=== PATIENT | male | born 1970 | race Caucasian/White ===

== ENCOUNTER → 2023-01-15 08:04 | Outpatient (CLI) | payer OTHER, SELFPAY ==
--- NOTE | ~2023-01-15 | US_ITS ---
EXAMINATION: US soft tissue abdomen DATE: 01/15/2023 08:24 INDICATION: Left upper quadrant abdominal mass. TECHNIQUE: Multiple grayscale and Doppler ultrasound images of the abdomen were obtained. COMPARISON: None FINDINGS: In the left upper quadrant, there is a 7.6 x 4.1 x 10.1 cm hypoechoic mass. There is mild s plenomegaly. IMPRESSION: 1. 7.6 x 4.1 x 10.1 cm hypoechoic mass in left upper quadrant of the abdomen suspicious for hematoma or neoplasm. CT abdomen and pelvis with contrast is recommended. 2. Mild splenomegaly. Reviewed, dictated and finalized at location A. IMPRESSION: 1. 7.6 x 4.1 x 10.1 cm hypoechoic mass in left upper quadrant of the abdomen parikh spicious for hematoma or neoplasm. CT abdomen and pelvis with contrast is recom mended. 2. Mild splenomegaly.
== END ==
PROVIDERS: PCP Family Medicine; Visit Provider Nurse Practitioner Family
DX: R19.02 Left upper quadrant abdominal swelling, mass and lump (principal); E11.40 Type 2 diabetes mellitus with diabetic neuropathy, unspecified; I10 Essential (primary) hypertension; E78.5 Hyperlipidemia, unspecified; R35.0 Frequency of micturition; R16.1 Splenomegaly, not elsewhere classified
CPT/HCPCS: 76705

== ENCOUNTER → 2023-01-21 09:48 | Outpatient (CLI) | payer OTHER, SELFPAY ==
--- NOTE | ~2023-01-21 | CT_ITS ---
CT of the Abdomen and Pelvis: Indication: Left upper quadrant mass Technique: 2.5 mm axial scans were obtained through the abdomen and pelvis following intravenous adm inistration of 100 cc of Omnipaque 350. Dose reduction technique was used on this scan by utilizing a utomated exposure control and iterative reconstruction technique. The dose-length product (DLP) was 1 142.03 mGy-cm. Findings: Scans through the lung bases are unremarkable. The liver, spleen, pancreas, gallbladder, adrenals and kidneys are within normal limits. No evidence of aortic aneurysm. No lymphadenopathy. No bowel obstruction or bowel wall thickening. There is no evidence to suggest acute appendicitis. In the subcutaneous soft tissues in the left upper quadrant region anteriorly, there is an 11.2 x 4.1 x 7.4 cm peripherally enhancing fluid collection. Small amount of fat apparently present within the co llection as well. Images through the pelvis were performed. Urinary bladder unremarkable. Prostate gland and seminal ve sicles are unremarkable. No ascites. Bilateral L5 pars interarticularis defects are present, with 8 mm anterolisthesis of L5 over S1. Impression: 11.2 x 4.1 x 7.4 cm fluid collection with small ventral fat in the subcutaneous soft tissues in the l eft upper quadrant region. This could reflect seroma, abscess, or possibly sequela of degloving type injury (Serrato-Raul lesion). Bilateral L5 pars interarticularis defects, with 8 mm anterolisthesis of L5 over S1. Reviewed, dictated and finalized at [facility]. Impression: 11.2 x 4.1 x 7.4 cm fluid collection with small ventral fat in the subcutaneous soft tissues in the left upper quadrant region. This could reflect seroma, abs cess, or possibly sequela of degloving type injury (Serrato-Raul lesion). Bilateral L5 pars interarticularis defects, with 8 mm anterolisthesis of L5 ove r S1.
[2023-01-21 10:07] LABS: Estimated Glomerular Filt Rate > 60
== END ==
PROVIDERS: PCP Family Medicine; Visit Provider Nurse Practitioner Family
DX: R19.02 Left upper quadrant abdominal swelling, mass and lump (principal); M43.06 Spondylolysis, lumbar region
CPT/HCPCS: 74177; Q9967

== ENCOUNTER 2023-03-23 15:02 | Outpatient (CLI) | payer OTHER, SELFPAY ==
--- NOTE | 2023-03-23 15:07 | ECG_ITS ---
Measurements Intervals [place] Rate: 66 P: 47 [place]: 180 QRS: -43 QRSD: 134 T: 3 QT: 405 QTc: 427 Interpretive Statements SINUS RHYTHM LEFT AXIS DEVIATION RIGHT BUNDLE BRANCH BLOCK ABNORMAL ECG NO PREVIOUS ECG AVAILABLE FOR COMPARISON Electronically Signed On 03-23-2023 16:18:35 CDT by Hugn Hernandez D.O.
[2023-03-23 15:37] LABS: Hematocrit 47.6 % (42.0-52.0); Hemoglobin 15.7 g/dL (14.0-18.0)
[2023-03-23 15:50] LABS: Anion Gap 9 mmol/L (8-16); Blood Urea Nitrogen 15 mg/dL (9-20); Calcium 8.8 mg/dL (8.4-10.2); Carbon Dioxide 28 mmol/L (22-30); Chloride 101 mmol/L (98-107); Estimated Glomerular Filt Rate > 60; Glucose 96 mg/dL (65-110); Potassium 3.7 mmol/L (3.4-5.0); Sodium 138 mmol/L (137-145)
== END 2023-03-23 15:03 | disposition home or self-care (01) ==
PROVIDERS: Anesthesiology; PCP Family Medicine; Visit Provider Surgery
DX: K43.9 Ventral hernia without obstruction or gangrene (principal); E11.9 Type 2 diabetes mellitus without complications
CPT/HCPCS: 36415; 80048; 85014; 85018; 86850; 86900; 86901; 93005

== ENCOUNTER 2023-03-25 00:08 | Day surgery (SDC) | payer OTHER, SELFPAY ==
[2023-03-21 10:52] VITALS: BMI 37.6
--- NOTE | 2023-03-21 11:02 | PC.NURSE ---
Report to the Outpatient Waiting Room, entrance under the green pavilion located off [facility], at time 8:30 on date 03/25/23. Planned Procedure Time: 10:30. Time changes happen often and if your time is changed the preop area will call you the afternoon before. - You and your visitor will be asked to self-screen and do not enter if you have any COVID symptoms. - A mask is optional within the hospital at this time. Patients may have clear liquids (water, carbonated beverages, clear teas, apple juice) until 3 hours prior to surgery (7:30) with a maximum of 20 ounces. - No food from midnight until time of surgery Take the following medications with a SIP of water the morning of surgery: PREGABALIN DO NOT STOP ANY OF YOUR OTHER PRESCRIPTION MEDICATIONS PRIOR TO SURGERY ?EXCEPT THE FOLLOWING Medications to discontinue per physician: VITAMINS/SUPPLEMENTS Date to take last dose: 03/21/23 Please no make-up, nail sri lankan, hairspray, perfume, deodorant, or body powder the day of surgery. No jewelry (including any body piercings) or valuables the day of surgery, leave them at home. Please take a shower or bath the night before, or the morning of, surgery with an antibacterial soap (HIBICLENS). Wear comfortable, loose fitting clothing. - Jewelry must be removed prior to entering the operating room. Rings and piercings that are not removed may be cut off. - The hospital will not accept responsibility for valuables. - Please leave all valuables, including medications, at home the day of surgery. If you are going home after surgery, a licensed marine engine driver must drive you home. - NO public transportation without another adult if you receive anesthesia. - We recommend that an adult stay with you for 24 hours following discharge. - We also recommend that you do not drive, make important decision, drink alcoholic beverages, or take any drugs that were not prescribed by your health care provider for at least 24 hours after your discharge time. Follow any additional instructions given to you from your surgeon. If you or anyone in your household have experienced Covid symptoms in the past week, please notify your surgeon or the nurse liaison at the phone number below for possible testing. Telephone instructions given to PT - SERA AGUILERA and asked if any additional questions and then verbalized understanding. Patient advised to call surgeon office or pre surgery nurse liaison [phone] if any additional questions.
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
[2023-03-25] VITALS (14 sets, daily range): BP systolic 109–136; BP diastolic 64–87; PULSE 66–90; RESP 10–20; TEMP 35.7–36.9; O2SAT 94–98
--- NOTE | 2023-03-25 07:14 | WPDHPUPDATE1 ---
History and Physical Update Update Date/Time: 03/25/23 07:14 History and Physical has been reviewed, including an updated exam of the patient. There are NO changes in the patient's condition. Risks, benefits, and alternatives have been discussed and questions answered. Patient agrees to proceed with procedure.
[2023-03-25] MEDS: ACETAMINOPHEN 500 MG TABLET 1000 MG PO (08:41)
[2023-03-25] MEDS: LACTATED RINGERS 1,000 ML 30 ML IV CONT ×2 (09:10→13:16)
[2023-03-25] MEDS: KETOROLAC 15 MG/ML VIAL (*BKC) IV PUSH (09:12)
[2023-03-25 09:18] LABS: Glucose Point of Care 87 mg/dl (65-105)
--- NOTE | 2023-03-25 09:46 | WPDANESEPPF ---
Anes - Initial Pre Proc Eval Procedure: Operation Date: 03/25/23 10:30 Proposed Procedures p Robotic Assisted Laparoscopic Ventral Hernia Repair with Mesh, - Timur Heath MD s Excision Left Upper Quadrant Chronic Seroma - Timur Heath MD Date/Time: 03/25/23 09:46 Surgeon: Timur Heath MD Pre Op Diagnosis: ventral hernia, LUQ chronic seroma Patient Data Age: 53 Gender: M Height: 1.75 m Weight: 115.7 kg Allergies Allergy/AdvReac Type Severity Reaction Status Date / Time Penicillins Allergy Unknown as a child Verified 03/25/23 08:24 Home Medications Medication Instructions Recorded Confirmed Type atorvastatin 40 mg tablet 40 mg PO DAILY 01/21/23 03/25/23 History benazepril 10 mg tablet 10 mg PO BID 01/21/23 03/25/23 History hydrochlorothiazide 12.5 mg capsule 12.5 mg PO DAILY 01/21/23 03/25/23 History metformin 500 mg tablet,extended 500 mg PO TID 01/21/23 03/25/23 History release 24 hr omega 1-ibk-lgc-fish oil 1,000 mg 1 cap PO DAILY 01/21/23 03/25/23 History (120 mg-180 mg) capsule (Fish Oil) pregabalin 50 mg capsule 50 mg PO BID 01/21/23 03/25/23 History semaglutide 2 mg/dose (8 mg/3 mL) 2 mg subcut WEEKLY 01/21/23 03/25/23 History subcutaneous pen injector (Ozempic) tadalafil 5 mg tablet 5 mg PO DAILY 01/21/23 03/25/23 History tamsulosin 0.4 mg capsule 0.4 mg PO DAILY 01/21/23 03/25/23 History cinnamon bark 500 mg capsule 1,000 mg PO BID 03/25/23 03/25/23 History (Cinnamon) glimepiride 4 mg tablet 4 mg PO DAILY 03/25/23 03/25/23 History Laboratory Tests 03/25/23 09:14 POC Capillary Glucose 87 mg/dl (65-105) Patient hx anesthesia problems: none Family hx anesthesia problems: none Results Review: All pre-operative results and documents have been reviewed as part of the pre-operative evaluation. [facility] Past Medical History Medical History Diabetes mellitus High cholesterol Hypertension Surgical History Surgical History H/O thumb surgery History of ankle surgery Family History Family History Other Diabetes mellitus Family history of cardiovascular disease Hypertension Social History Social History Smoking status: Never smoker Alcohol intake: current Drinks per week: 1 Substance use: current Substance use type: marijuana Living arrangements: with family Spiritual care concerns: No Anes - Eval Final PreProcedure Day of Procedure 03/25/23 09:46 Patient weight: obese Heart: regular rate and rhythm Lungs: clear to auscultation Airway: Mallampati scale class II Neurological: alert and oriented Last oral intake: >/= 8 hours ASA classification: III Emergent: no Anesthetic plan: proceed Anesthesia type and monitoring: general ETT and standard monitoring Results Review: All pre-operative results and documents have been reviewed as part of the pre-operative evaluation. Informed Consent: The patient's anesthetic plan and its attendant risks and benefits were discussed with the patient/family/POA. Questions were solicited and answers provided to the satisfaction of the patient/family/POA.
--- NOTE | 2023-03-25 09:57 | SUR.PREOP ---
0974-DR. CASTILLO AWARE PT TOOK METFORMIN @ 0330 AND ACCUCHECK RESULT OF 87 @ 5199.
[2023-03-25] MEDS: ceFAZolin 2 GM/D5W 50 ML 2 GM/50 ML BAG IVPB (09:58)
[2023-03-25] MEDS: BUPIVACAINE/EPINEPHRINE 0.25% 10 ML VIAL 30 ML INFILTRATE (10:37)
[2023-03-25 13:40] LABS: Glucose Point of Care 160 mg/dl (65-105)
[2023-03-25] MEDS: fentaNYL CITRATE INJ (*CRX) 100 MCG/2 ML VIAL 25 MCG IV PUSH ×5 (13:45→14:41)
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
[2023-03-25 15:40] LABS: Glucose Point of Care 188 mg/dl (65-105)
[2023-03-25] MEDS: lisinopriL 10 MG TABLET PO (17:50)
[2023-03-25] MEDS: PREGABALIN (*CRX) 50 MG CAPSULE PO (17:50)
[2023-03-25] MEDS: metFORMIN HCL XR 500 MG TAB.SR.24H 1000 MG PO (17:50)
[2023-03-25] MEDS: LACTATED RINGERS 1,000 ML 80 ML IV CONT (17:51)
--- NOTE | 2023-03-25 18:28 | ADMGEN ---
This patient, Lane Martinez, was admitted to [facility] Surg Room 330-02. Patient/family oriented to hospital policies and general routines including ID bracelet, bed and alarms, visiting hours, pain management, procedures, bathroom and other care routines, personal items, smoking policy, room service/diet, and visiting hours. Information on how to activate the Rapid Response Team has been discussed. Patient/Family are encouraged to report perceived risks to care and to ask questions if they do not understand what they are told or what they should do.
[2023-03-25 22:33] LABS: Glucose Point of Care 162 mg/dl (65-105)
[2023-03-25] MEDS: ACETAMINOPHEN 500 MG TABLET PO (23:49)
[2023-03-26 00:21] VITALS: BP 126/77; PULSE 91; RESP 18; TEMP 37; O2SAT 96
[2023-03-26 04:39] VITALS: BP 129/67; PULSE 81; RESP 18; TEMP 36.6; O2SAT 99
[2023-03-26 06:16] LABS: Hematocrit 46.2 % (42.0-52.0); Hemoglobin 15.3 g/dL (14.0-18.0); Mean Corpuscular HGB Conc 33.1 g/dl (32-36); Mean Corpuscular Hemoglobin 28.3 pg (26-34); Mean Corpuscular Volume 85.4 fl (80-100); Mean Platelet Volume 9.4 fl (7.4-10.4); Platelet Count Result 195 k/mm3 (150-375); Red Blood Count 5.41 M/mm3 (4.6-6.20); Red Cell Distribution Width 13.4 % (11.5-14.5); White Blood Count 9.8 K/mm3 (4.5-10.0)
[2023-03-26 06:33] LABS: Anion Gap 9 mmol/L (8-16); Blood Urea Nitrogen 18 mg/dL (9-20); Calcium 8.4 mg/dL (8.4-10.2); Carbon Dioxide 27 mmol/L (22-30); Chloride 96 mmol/L (98-107); Estimated CRCL calculation 107 ml/min; Estimated Glomerular Filt Rate > 60; Glucose 106 mg/dL (65-110); Sodium 132 mmol/L (137-145)
[2023-03-26 08:37] LABS: Glucose Point of Care 87 mg/dl (65-105)
[2023-03-26 08:39] VITALS: BP 132/75; PULSE 76; RESP 18; TEMP 36.9; O2SAT 100
--- NOTE | 2023-03-26 10:09 | PM.DS ---
DS: Admitting Diagnosis Discharge Date 03/26/2023 Admitting Diagnosis Epigastric hernia, chronic seroma DS: Discharge Diagnosis Discharge Diagnosis (1) Ventral hernia: Qualifiers: Obstruction and gangrene presence: without obstruction or gangrene Qualified Code(s): K43.9 - Ventral hernia without obstruction or gangrene Code(s): K43.9 - Ventral hernia without obstruction or gangrene Status: Chronic Assessment and Plan: status post robotic assisted repair with mesh, continue postoperative care including light activity restrictions, follow-up with Dr. Heath in 1 week (2) Seroma: Status: Chronic Assessment and Plan: status post open excision and drainage, continue routine postoperative care, continue drain care, follow-up with Dr. Heath in 1 week (3) Diabetes mellitus: Qualifiers: Diabetes mellitus complication status: without complication Diabetes mellitus custodial insulin use: without terminal operations supervisor use Diabetes mellitus type: type 2 Qualified Code(s): E11.9 - Type 2 diabetes mellitus without complications Code(s): E11.9 - Type 2 diabetes mellitus without complications Status: Chronic Assessment and Plan: stable, continue home medications (4) Hypertension: Qualifiers: Hypertension type: primary hypertension Qualified Code(s): I10 - Essential (primary) hypertension Code(s): I10 - Essential (primary) hypertension Status: Chronic Assessment and Plan: stable, continue home meds DS: Summary Hospital Course Reason for hospitalization: epigastric ventral hernia, left upper quadrant subcutaneous chronic seroma Hospital Course: The patient is a 53-year-old male that presented to the hospital for repair of epigastric ventral hernia and open excisional drainage of chronic seroma in the left upper quadrant. The patient was taken to the operating room on 03/[address] Heath for robotic assisted repair of epigastric ventral hernia and open excisional drainage of chronic seroma. Please see full operative report for details of the procedure. Postoperatively, the patient did well was transferred to the surgical floor. On postoperative day 1. , the patient was doing well and complained of mild incisional soreness. The patient reports his pain is well controlled with p.o. analgesia. The patient has a JOSSELINE drain that is draining a moderate amount of serosanguineous fluid. The patient will be taught drain care and will be sent home with the drain. He will follow up with Dr. Heath in 1 week. Status at Discharge Functional status at discharge: independent ambulation Overall status at discharge: patient is progressing back to baseline Time Spent with Patient Time attestation: Total time spent providing and/or coordinating discharge services: Time spent: Less than 30 minutes Exam Const: General: cooperative, comfortable and no acute distress Resp: Auscultation: clear to auscultation bilaterally Cardio: Rate: regular rate Rhythm: regular rhythm GI: Inspection: normal to inspection, distended and incision GI Palp: Yes abdominal tenderness, Yes Soft to palpation, Yes Tenderness to palpation present (GI), No Guarding due to palpation present (GI) and No Rigid due to palpation Other: JOSSELINE c s/s output DS: Data Data Completed and Pending Pending studies at discharge: Pending at discharge 03/25/23 12:54 Surgical [PTH] Routine Labs on day of discharge: Labs from last 24 hours 03/26/23 03/26/23 03/25/23 07:47 05:50 20:42 WBC 9.8 RBC 5.41 Hgb 15.3 Hct 46.2 MCV 85.4 MCH 28.3 MCHC 33.1 RDW 13.4 Plt Count 195 MPV 9.4 Sodium 132 L Potassium 4.0 Chloride 96 L Carbon Dioxide 27 Anion Gap 9 BUN 18 Creatinine 0.90 Estim Creat Clear Calc 107 Estimated GFR > 60 Glucose 106 POC Capillary Glucose 87 162 H Calcium 8.4 03/25/23 03/25/23 15:25 13:23
[2023-03-26] MEDS: metFORMIN HCL XR 500 MG TAB.SR.24H 1000 MG PO (10:44)
[2023-03-26] MEDS: lisinopriL 10 MG TABLET PO (10:44)
[2023-03-26] MEDS: GLIMEPIRIDE 2 MG TABLET 4 MG PO (10:46)
[2023-03-26] MEDS: ATORVASTATIN 40 MG TABLET PO (10:46)
[2023-03-26] MEDS: TAMSULOSIN HCL 0.4 MG CAPSULE PO (10:47)
[2023-03-26] MEDS: hydroCHLOROthiazide 12.5 MG CAPSULE PO (10:47)
[2023-03-26] MEDS: ENOXAPARIN 40 MG/0.4 ML SYRINGE SUB-Q (10:48)
[2023-03-26] MEDS: PREGABALIN (*CRX) 50 MG CAPSULE PO (10:49)
[2023-03-26 12:00] LABS: Glucose Point of Care 163 mg/dl (65-105)
--- NOTE | 2023-03-26 15:17 | PC.NURSE ---
Pt is A&O4 male who has participated and contributed in plan of care. Pt discharged home with . Pt had problems with medication at the pharmacy. Issue resolved once provider contacted. Pt denied any need for pain medication. Pt ambulating well in the halls. Pt had 30 mL out in JOSSELINE drain. Drain site was clean dry and intact. Pt and were educated on how to empty drain and compress grenade to create closed suction. Pt was monitored for any changes in status while here.
== END 2023-03-26 13:10 | disposition home or self-care (01) ==
LOC: ANHSURGERY 08:11 → ANH3MEDSUR 14:58
PROVIDERS: PCP Family Medicine; Visit Provider Surgery
PROC: (CPT 49595; principal; 2023-03-25 10:30)
PROC: (CPT 49595; 2023-03-25 10:30)
DX: K43.2 Incisional hernia without obstruction or gangrene (principal); M79.81 Nontraumatic hematoma of soft tissue; N40.1 Benign prostatic hyperplasia with lower urinary tract symptoms; N13.8 Other obstructive and reflux uropathy; G89.18 Other acute postprocedural pain; I10 Essential (primary) hypertension; E11.9 Type 2 diabetes mellitus without complications; E78.00 Pure hypercholesterolemia, unspecified; F12.90 Cannabis use, unspecified, uncomplicated; E66.9 Obesity, unspecified; Z68.39 Body mass index [BMI] 39.0-39.9, adult; Z79.84 Long term (current) use of oral hypoglycemic drugs
CPT/HCPCS: 49595; 22903; S2900; 36415; 80048; 82948; 85014; 85018; 85027; 86850; 86900; 86901; 87070; 87075; 87205; 88305; 93005; A9270; C1781; J0690; J1100; J1650; J1885; J2250; J2270; J2405; J2704; J3010; J7120

== ENCOUNTER → 2023-06-29 09:39 | Outpatient (CLI) | payer OTHER, SELFPAY ==
--- NOTE | ~2023-06-29 | US_ITS ---
EXAMINATION: US carotid duplex BI DATE: 06/29/2023 10:14 INDICATION: Hypertension TECHNIQUE: Grayscale, color Doppler, and pulsed Doppler images of the cervical carotid arteries were obtained. The degree of vessel stenosis is placed in one of the following categories: normal, <50%, 5 0-69%, >=70% but less than near-occlusion, near-occlusion, or total occlusion. Note that percent sten osis relative to normal distal artery lumen diameter is indirectly measured from velocity measurement s as described by Nik, et al. Radiology 2003; 229:340-346. Notes: Normal: Peak systolic velocity <125 centimeters/sec and no plaque <50%. Peak systolic velocity <125 ( EDV <40; ICA/CCA PSV ratio <2.0; used these factors only a tandem lesions or low cardiac output or co ntralateral disease) 50-69 %: PSV 125-230 (EDV 40-100; ratio 2-4) >= 70% but less than near occlusion: PSV greater than 230 (EDV > 100; ratio> 4.0) Near Occlusion: PSV that is variable; markedly narrowed lumen Occlusion: Absent flow on color/spectral Doppler and no lumen on jameson scale. COMPARISON: None. FINDINGS: RIGHT: The right common carotid artery (CCA) peak systolic velocity (PSV) is 73 cm/s. The right internal car otid artery (ICA) PSV is 52 cm/s. The right ICA end-diastolic velocity (EDV) is 16 cm/s. The right IC A/CCA PSV ratio is 0.7. The external carotid artery (ECA) PSV is 83 cm/s. There is antegrade flow in the right vertebral artery. LEFT: The left CCA PSV is 81 cm/s. The left ICA PSV is 54 cm/s. The left ICA EDV is 20 cm/s. The left ICA/C CA PSV ratio is 0.7. The ECA PSV is 76 cm/s. There is antegrade flow in the left vertebral artery. IMPRESSION: 1. Less than 50% stenosis in the right internal carotid artery by sonographic criteria. 2. Less than 50% stenosis in the left internal carotid artery by sonographic criteria. Reviewed, dictated and finalized at location B. IMPRESSION: 1. Less than 50% stenosis in the right internal carotid artery by sonographic leander shelton. 2. Less than 50% stenosis in the left internal carotid artery by sonographic david red.
== END ==
PROVIDERS: PCP Family Medicine; Visit Provider Family Medicine
DX: I65.23 Occlusion and stenosis of bilateral carotid arteries (principal); I10 Essential (primary) hypertension
CPT/HCPCS: 93880

== ENCOUNTER 2023-07-08 13:06 | Outpatient (CLI) | payer OTHER, SELFPAY ==
--- NOTE | ~2023-07-08 | CT_ITS ---
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 TECHNIQUE: Computed tomographic angiography (CTA) of the head was performed without and with 100 mL O mnipaque-350 intravenous contrast. CTA of the neck was performed with intravenous contrast. Automated exposure control and iterative reconstruction technique were employed. The dose-length product was 1 722.64 mGy-cm. Maximum intensity projection and volume rendered 3D-reconstructions were created by min levi technologist on a separate workstation. COMPARISON: None. FINDINGS: HEAD CTA: There is no intracranial hemorrhage, acute infarction, or abnormal intracranial mass lesion . The ventricles are normal in size. There is mild mucosal thickening in the paranasal sinuses. The m astoid air cells are normal. The orbits are normal. Left vertebral artery is dominant. There is no si gnificant stenosis of basilar artery or the posterior cerebral arteries. The posterior communicating arteries are normal. There is no significant stenosis of intracranial internal carotid arteries or an terior or middle cerebral arteries. Anterior communicating artery is normal. There is no aneurysm. NECK CTA: There are no pathologically enlarged lymph nodes. There is no significant stenosis of the v ertebral arteries. There is plaque in the proximal internal carotid arteries. There is 0% stenosis of the proximal right internal carotid artery relative to normal distal artery lumen diameter (NASCET c riteria). There is 0% stenosis of the proximal left internal carotid artery relative to normal distal artery lumen diameter. There is moderate cervical spondylosis. IMPRESSION: 1. Normal brain. No aneurysm or significant intracranial arterial stenosis. 2. 0% stenosis of the proximal internal carotid arteries relative to normal distal artery lumen diame ters (NASCET criteria). Reviewed, dictated and finalized at location E. [facility] IMPRESSION: 1. Normal brain. No aneurysm or significant intracranial arterial stenosis. 2. 0% stenosis of the proximal internal carotid arteries relative to normal dis [place] artery lumen diameters (NASCET criteria).
--- NOTE | ~2023-07-08 | US_ITS ---
EXAMINATION: US soft tissue abdomen INDICATION: Left upper quadrant pain, history of laparoscopic repair of an epigastric incisional jeison ia and subcutaneous seroma treatment TECHNIQUE: Limited left upper quadrant ultrasound is performed in the area of clinical interest COMPARISON: CT, 01/15/2023 FINDINGS: No sonographic correlate is identified in the area of clinical concern. There is no suspici ous cystic or solid mas. IMPRESSION: 1. No specific sonographic correlate is identified for the reported palpable abnormality of concern. Further evaluation at this time should be based on clinical assessment. Continued follow-up physical examination is recommended. Reviewed, dictated and finalized at location B. [facility] IMPRESSION: 1. No specific sonographic correlate is identified for the reported palpable ab normality of concern. Further evaluation at this time should be based on clinic al assessment. Continued follow-up physical examination is recommended.
[2023-07-08 13:48] LABS: Estimated Glomerular Filt Rate > 60
== END 2023-07-08 13:07 ==
PROVIDERS: PCP Family Medicine; Visit Provider Family Medicine
DX: R10.12 Left upper quadrant pain (principal); H34.211 Partial retinal artery occlusion, right eye; Z87.19 Personal history of other diseases of the digestive system; Z98.890 Other specified postprocedural states
CPT/HCPCS: 70496; 70498; 76705; Q9967

== ENCOUNTER → 2023-07-19 08:05 | Outpatient (CLI) | payer OTHER, SELFPAY ==
--- NOTE | ~2023-07-19 | CT_ITS ---
EXAMINATION: CT abdomen wo con DATE: 07/19/2023 08:22 INDICATION: Left upper quadrant pain TECHNIQUE: Computed tomography (CT) of the abdomen was performed without intravenous contrast. The do se-length product was 801.20 mGy-cm. Automated exposure control and iterative reconstruction techniqu e were employed. COMPARISON: CT dated 01/21/2023. FINDINGS: Lung bases are unremarkable. Heart size is normal. No significant pleural or pericardial ef fusion. There are calcified granulomas of the spleen. The liver, pancreas, adrenal glands and kidneys are unremarkable. There are areas of fat necrosis in the anterior abdominal wall in the area of prev ious abdominal wall hernia. No significant vascular abnormality. Nonobstructive bowel gas pattern. No free air or free fluid. No lymphadenopathy. Moderate lower thoracic and lumbar spondylosis with grad e 1 spondylolisthesis at L5-S1 secondary to bilateral spondylolysis. IMPRESSION: 1. No acute abdominal abnormality. Reviewed, dictated and finalized at location L. TERIA TABLE ATTENDANT
== END ==
PROVIDERS: PCP Surgery; Visit Provider Surgery
DX: R10.12 Left upper quadrant pain (principal); Z87.19 Personal history of other diseases of the digestive system; Z98.890 Other specified postprocedural states
CPT/HCPCS: 74150

== ENCOUNTER 2023-08-04 14:49 | Outpatient (CLI) | payer OTHER, SELFPAY ==
--- NOTE | 2023-08-04 | ECHO_ITS ---
Patient Info Name: Lane Martinez Age: 53 years : 1970 Gender: Male Ht: 69 in Wt: 267 lbs BSA: 2.48 m2 HR: 92 bpm BP: 155 / 91 mmHg Heart Rhythm: Sinus Rhythm Technical Quality: Poor Exam Date: 08/04/2023 3:19 PM Exam Location: Echo Lab Patient Status: Outpatient Admit Date: 08/04/2023 Staff Ordering Physician: Malathi Maria MD Corn Husk Baler: Herve Anderson RDCS Attending Provider: Malathi Maria MD Referring Physician: Crow DRAKE; Exam Type: CA echo dop color flow w con Study Info Indications - UNSP VISUAL LOSS Complete two-dimensional, color flow and Doppler transthoracic echocardiogram is performed with contrast to opacify the left ventricle and to improve the deliniation of the left ventricle endocardial borders. Contrast/Agitated Saline Contrast/Ag. Saline: Definity Amount: 3.00 ml Reason for Poor Study: poor echocardiographic windows Summary 1. Technically suboptimal study due to poor sonographic images. 2. Definity contrast administered improved wall motion interpretation. 3. Left ventricular chamber dimension is normal. 4. Left ventricular systolic function is normal, estimated at 60-65%. 5. There is moderate concentric increased left ventricular wall thickness. 6. The left ventricular diastolic function is grade I diastolic dysfunction. 7. E/e' 9 is minimally elevated. 8. The aortic valve is not well visualized. 9. There is moderate aortic valve sclerosis. In parasternal long axis view either sclerosis of aortic valve or possible vegetation as it is not clearly seen. Consider RENETTA for further evaluation of aortic valve. 10. No pulmonary hypertension, estimated pulmonary arterial systolic pressure is 11 mmHg. Left Ventricle Definity contrast administered improved wall motion interpretation. E/e' 9 is minimally elevated. Technically suboptimal study due to poor sonographic images. Left ventricular chamber dimension is normal. Left ventricular systolic function is normal, estimated at 60-65%. There is moderate concentric increased left ventricular wall thickness. The left ventricular diastolic function is grade I diastolic dysfunction. Right Ventricle Right ventricular systolic function is normal and with normal TAPSE 2.4 cm. Right ventricular chamber dimension is normal. Left Atria Left atrial chamber dimension is normal. Right Atria Right atrial chamber dimension is normal. Aortic Valve There is moderate aortic valve sclerosis. In parasternal long axis view either sclerosis of aortic valve or possible vegetation as it is not clearly seen. Consider RENETTA for further evaluation of aortic valve. Trileaflet aortic valve. The aortic valve is not well visualized. There is no aortic valve stenosis. There is no aortic valve regurgitation. Pulmonic Valve There is no pulmonic regurgitation. Mitral Valve There is no mitral valve stenosis. There is no mitral valve regurgitation. Tricuspid Valve There is no tricuspid valve regurgitation. No pulmonary hypertension, estimated pulmonary arterial systolic pressure is 11 mmHg. Pericardium/Pleural There is no pericardial effusion. Inferior Vena Cava Normal inferior vena cava with >50% collapse upon inspiration consistent with normal right atrial pressure, 5 mmHg. Aorta The aortic root size at the sinus of Valsalva is normal. Left Ventricular Outflow Tract Name Value Normal
[2023-08-04] MEDS: PERFLUTREN LIPID MICROSPHERES 1.5 ML VIAL DILUTED TO 10 ML TOTAL VOLUME IV PUSH (15:11)
--- NOTE | 2023-08-12 11:22 | IVDEFINITY ---
Prior to administration of IV Definity the patient was educated on the risks and benefits of the imaging enhancing agent including potential adverse side effects. The patient verbalized understanding. Allergies were verified. No exclusion criteria were identified and at least one of the following inclusion criteria were met: 1) physician request, 2) patient technically difficult to image (per the [place] [employer] guidelines of two or more segments not discernable within the apical view), or 3) questionable left ventricular function. ?
== END 2023-08-04 14:50 | disposition home or self-care (01) ==
PROVIDERS: PCP Family Medicine; Visit Provider Family Medicine
DX: I35.8 Other nonrheumatic aortic valve disorders (principal); H34.211 Partial retinal artery occlusion, right eye; I10 Essential (primary) hypertension; Z13.6 Encounter for screening for cardiovascular disorders
CPT/HCPCS: C8929; Q9957